=== PATIENT | male | born 1950 | race Caucasian/White ===

== ENCOUNTER 2021-07-06 09:31 | Outpatient (CLI) | payer MEDICARE, OTHER ==
[2021-07-07 00:47] LABS: SARS-CoV-2 PCR by NAA Not Detected (NotDetected)
== END 2021-07-06 09:32 | disposition home or self-care (01) ==
LOC: CSHLAB 09:31
PROVIDERS: ATTEND Internal Medicine Gastroenterology
DX: Z20.822 Contact with and (suspected) exposure to COVID-19 (principal); K63.5 Polyp of colon
CPT/HCPCS: U0003; U0005

== ENCOUNTER 2021-07-09 06:08 | Day surgery (SDC) | payer MEDICARE, OTHER ==
[2021-07-07 09:20] VITALS: BMI 36.6
[2021-07-09] MEDS ORDERED: PROPOFOL 40 ML ONE (07:09)
== END 2021-07-09 08:41 | disposition home or self-care (01) ==
LOC: CSHSDC 06:08
PROVIDERS: ATTEND Internal Medicine Gastroenterology
PROC: 0DBP8ZZ Excision of Rectum, Via Natural or Artificial Opening Endoscopic (ICD-10-PCS; principal; 2021-07-09)
PROC: 0DBN8ZZ Excision of Sigmoid Colon, Via Natural or Artificial Opening Endoscopic (ICD-10-PCS; 2021-07-09)
DX: Z12.11 Encounter for screening for malignant neoplasm of colon (principal); D12.5 Benign neoplasm of sigmoid colon; D12.8 Benign neoplasm of rectum; I10 Essential (primary) hypertension; E78.5 Hyperlipidemia, unspecified; E11.9 Type 2 diabetes mellitus without complications
CPT/HCPCS: 88305; J2704